=== PATIENT | male | born 1990 | race Caucasian/White ===

== ENCOUNTER 2022-01-08 16:54 | Emergency (ER) | payer MEDICAID ==
[~2022-01-08] VITALS: Ht 193 cm; Wt 102.3 kg
[~2022-01-08 16:54] MED LIST: CLIN-97 PO; CLOT15CR35 TP; DIPH1TAB PO; GUAI120015 PO; LORA2TAB96 PO; NAPR-232 PO
[2022-01-08 17:05] VITALS: BP 131/79
[2022-01-08] MEDS ORDERED: DOXYCYCLINE 100MG CAPSULE PO STA (17:48)
[2022-01-08] MEDS ORDERED: DOXY-1 PO (17:48)
== END 2022-01-08 18:05 | disposition home or self-care (01) ==
LOC: ER 16:55
DX: L03.113 Cellulitis of right upper limb (principal); M79.641 Pain in right hand; F17.200 Nicotine dependence, unspecified, uncomplicated; F12.90 Cannabis use, unspecified, uncomplicated; F15.90 Other stimulant use, unspecified, uncomplicated; F11.90 Opioid use, unspecified, uncomplicated; Z86.14 Personal history of Methicillin resistant Staphylococcus aureus infection; Z90.89 Acquired absence of other organs; Z72.89 Other problems related to lifestyle; Z79.2 Long term (current) use of antibiotics; Z79.899 Other long term (current) drug therapy
CPT/HCPCS: 99283

== ENCOUNTER 2022-01-22 02:11 | Emergency (ER) | payer MEDICAID ==
[~2022-01-22] VITALS: Ht 190.5 cm; Wt 100.0 kg
--- NOTE | 2022-01-22 04:30 | NUR ---
Pt presents to the ed tx area stating his family suggest that he gets checked out in the ed because he woke up gasping for breath. the pt denies pain, other medical problems or related issues; he is a/o, nad, skin w/d
[2022-01-22] MEDS ORDERED: LORazepam 1 MG tablet PO ONE ×2 (04:50→05:50)
[2022-01-22] MEDS ORDERED: diphenhydrAMINE 25mg capsule PO ONE (04:50)
--- NOTE | 2022-01-22 04:50 | NUR ---
pt appears to be twitching with mvts that appear to be extrapyramidal symptoms; pt medicated per mar, except that Ativan held per md.
--- NOTE | 2022-01-22 06:11 | NUR ---
pt medicated per mar; lab at [facility]
[2022-01-22 06:23] LABS: BASOPHILS % (AUTO) 0.2 % (0-1); EOSINOPHILS # (AUTO) 0.1 X10'3 (0-0.9); EOSINOPHILS % (AUTO) 0.9 % (0-6); HEMATOCRIT 38.9 % (42.0-52.0); HEMOGLOBIN 13.1 g/dl (14.0-17.9); LYMPHOCYTES # (AUTO) 2.3 X10'3 (1.1-4.8); LYMPHOCYTES % (AUTO) 30.8 % (21-51); MEAN CORPUSCULAR HEMOGLOBIN 29.2 PG (27.0-31.0); MEAN CORPUSCULAR HGB CONC 33.7 g/dL (33.0-36.5); MEAN CORPUSCULAR VOLUME 86.5 FL (78-98); MEAN PLATELET VOLUME 7.9 FL (7.4-10.4); MONOCYTES # (AUTO) 0.5 X10'3 (0-0.9); MONOCYTES % (AUTO) 7.1 % (2-12); NEUTROPHILS # (AUTO) 4.5 X10'3 (1.8-7.7); PLATELET COUNT 145 X10'3 (140-440); RED BLOOD COUNT 4.49 X10'6 (4.70-6.10); RED CELL DISTRIBUTION WIDTH 12.9 % (11.5-14.5); WHITE BLOOD COUNT 7.4 X10'3 (4.5-11.0)
[2022-01-22 06:34] LABS: ALANINE AMINOTRANSFERASE 134 U/L (12-78); ALBUMIN 3.9 G/DL (3.4-5.0); ALBUMIN/GLOBULIN RATIO 1.4 (1.1-1.5); ALKALINE PHOSPHATASE 64 IU/L (46-116); ANION GAP 11 (8-16); ASPARTATE AMINO TRANSFERASE 64 U/L (10-37); BILIRUBIN,TOTAL 1.2 MG/DL (0.1-1.0); BLOOD UREA NITROGEN 13 MG/DL (7-18); BUN/CREATININE RATIO 14.6 (5.4-32.0); CALCIUM 8.9 MG/DL (8.5-10.1); CHLORIDE 107 MMOL/L (99-107); CREATININE 0.89 MG/DL (0.60-1.10); GLUCOSE 93 MG/DL (70-104); POTASSIUM 3.9 MMOL/L (3.5-5.1); SODIUM 144 MMOL/L (135-145); TOTAL CARBON DIOXIDE 26.5 MMOL/L (24-32); TOTAL PROTEIN 6.7 G/DL (6.4-8.2); eGFR > 90 ML/MIN
[2022-01-22] MEDS ORDERED: benztropine 1mg tablet PO SCH (06:35)
[2022-01-22] MEDS ORDERED: DIPH25CA83 PO (06:49)
[2022-01-22 07:15] VITALS: BP 100/57
== END 2022-01-22 07:27 | disposition home or self-care (01) ==
LOC: ER 02:11
DX: G25.89 Other specified extrapyramidal and movement disorders (principal); F19.10 Other psychoactive substance abuse, uncomplicated; G25.71 Drug induced akathisia; F12.90 Cannabis use, unspecified, uncomplicated; F15.90 Other stimulant use, unspecified, uncomplicated; F11.90 Opioid use, unspecified, uncomplicated; Z86.14 Personal history of Methicillin resistant Staphylococcus aureus infection; Z90.89 Acquired absence of other organs; Z98.890 Other specified postprocedural states; Z72.89 Other problems related to lifestyle; Z79.2 Long term (current) use of antibiotics; Z79.899 Other long term (current) drug therapy
CPT/HCPCS: 36415; 80053; 85025; 99284; Q0163

== ENCOUNTER 2022-08-30 10:39 | Emergency (ER) | payer MEDICAID ==
[~2022-08-30] VITALS: Ht 190.5 cm; Wt 92.0 kg
[~2022-08-30 10:39] MED LIST changes: +DIPH25CA83 PO
[2022-08-30] MEDS ORDERED: normal saline 1000ml 1,000 ML IV ONE (10:50)
--- NOTE | 2022-08-30 11:53 | NUR ---
PT IS AWAKE, LAYING ON THE GURNEY AND APPEARS TO BE IN NO APPARENT DISTRESS.
[2022-08-30 14:23] VITALS: BP 105/52
== END 2022-08-30 14:26 | disposition home or self-care (01) ==
LOC: ER 10:40
DX: T40.411A Poisoning by fentanyl or fentanyl analogs, accidental (unintentional), initial encounter (principal); F15.20 Other stimulant dependence, uncomplicated; F12.90 Cannabis use, unspecified, uncomplicated; F19.10 Other psychoactive substance abuse, uncomplicated; Z98.890 Other specified postprocedural states; Y92.89 Other specified places as the place of occurrence of the external cause
CPT/HCPCS: 96360; 99285; J7030

== ENCOUNTER 2022-12-31 11:46 | Emergency (ER) | payer MEDICAID ==
[~2022-12-31] VITALS: Ht 193 cm; Wt 98.0 kg
[2022-12-31 12:02] VITALS: BP 129/67
[2022-12-31 15:12] LABS: BASOPHILS % (AUTO) 0.4 % (0-1); EOSINOPHILS # (AUTO) 0.1 X10'3 (0-0.9); EOSINOPHILS % (AUTO) 1.8 % (0-6); HEMATOCRIT 39.8 % (42.0-52.0); HEMOGLOBIN 13.1 g/dl (14.0-17.9); LYMPHOCYTES # (AUTO) 1.6 X10'3 (1.1-4.8); LYMPHOCYTES % (AUTO) 32.2 % (21-51); MEAN CORPUSCULAR HEMOGLOBIN 29.1 PG (27.0-31.0); MEAN CORPUSCULAR HGB CONC 32.9 g/dL (33.0-36.5); MEAN CORPUSCULAR VOLUME 88.5 FL (78-98); MEAN PLATELET VOLUME 7.8 FL (7.4-10.4); MONOCYTES # (AUTO) 0.4 X10'3 (0-0.9); MONOCYTES % (AUTO) 8.6 % (2-12); NEUTROPHILS # (AUTO) 2.8 X10'3 (1.8-7.7); PLATELET COUNT 129 X10'3 (140-440); RED CELL DISTRIBUTION WIDTH 13.7 % (11.5-14.5)
[2022-12-31 15:25] LABS: ALANINE AMINOTRANSFERASE 239 U/L (12-78); ALBUMIN 4.3 G/DL (3.4-5.0); ALBUMIN/GLOBULIN RATIO 1.4 (1.1-1.5); ALKALINE PHOSPHATASE 79 IU/L (46-116); ANION GAP 2 (8-16); ASPARTATE AMINO TRANSFERASE 93 U/L (10-37); BILIRUBIN,TOTAL 0.4 MG/DL (0.1-1.0); BLOOD UREA NITROGEN 14 MG/DL (7-18); BUN/CREATININE RATIO 16.7 (5.4-32.0); CALCIUM 8.9 MG/DL (8.5-10.1); CHLORIDE 106 MMOL/L (99-107); CREATININE 0.84 MG/DL (0.60-1.10); GLUCOSE 89 MG/DL (70-104); POTASSIUM 4.1 MMOL/L (3.5-5.1); SODIUM 140 MMOL/L (135-145); TOTAL CARBON DIOXIDE 31.6 MMOL/L (24-32); TOTAL PROTEIN 7.3 G/DL (6.4-8.2); eGFR > 90 ML/MIN
[2022-12-31 15:55] LABS: MONOTEST NEGATIVE (Neg)
== END 2022-12-31 16:17 | disposition home or self-care (01) ==
LOC: ER 11:46
DX: F15.90 Other stimulant use, unspecified, uncomplicated (principal); R53.83 Other fatigue; F41.9 Anxiety disorder, unspecified; F12.90 Cannabis use, unspecified, uncomplicated; F11.90 Opioid use, unspecified, uncomplicated; Z79.899 Other long term (current) drug therapy; Z90.89 Acquired absence of other organs; Z90.49 Acquired absence of other specified parts of digestive tract; Z86.14 Personal history of Methicillin resistant Staphylococcus aureus infection; Z86.19 Personal history of other infectious and parasitic diseases
CPT/HCPCS: 36415; 80053; 85025; 86308; 99283